=== PATIENT | female | born 1975 | race Caucasian/White ===

== ENCOUNTER 2018-01-21 20:51 | Emergency (ER) | payer OTHER ==
[~2018-01-21] VITALS: Ht 149.9 cm; Wt 75.8 kg
[2018-01-21 21:00] VITALS: BP 136/82
--- NOTE | 2018-01-21 21:20 | NUR ---
C/o generalized weakness, headache x 1 day. Reports NAUSEA AND LOW BACK PAIN TODAY. PMH: anemia, DM PT DENIES V/D, ADMITS NAUSEA X 1 DAY; SKIN IS INTACT, PINK/WARM/DRY; AAOX4, PERRL, WITH EVEN AND STEADY GAIT; LUNGS CLEAR BL, BREATHING UNLABORED; HR EVEN AND REGULAR, BL PERIPHERAL PULSES PRESENT; BS ACTIVE X4, NO TENDERNESS TO PALPATION, NO HEPATOSPLENOMEGALLY PALPATED, RESONANT TO PERCUSSION; PT DENIES ANY FEVER, CP, SOB, OR COUGH AT THIS TIME; PT STATES 10/10 PAIN AT THIS TIME; VSS; PATIENT POSITIONED FOR COMFORT; HOB ELEVATED; BEDRAILS UP X2; BED DOWN.
--- NOTE | 2018-01-21 21:20 | NUR ---
PT AMBULATED TO ED BED 1 BY KEN HINKLE
--- NOTE | 2018-01-21 22:30 | NUR ---
DR. ZAMBRANO MADE AWARE PT REQUESTING MEDICATION FOR HEADACHE AT THIS TIME.
[2018-01-21] MEDS ORDERED: IBUPROFEN 600 MG TAB PO ONE (23:00)
[2018-01-21] MEDS ORDERED: IBUPROFEN 600 MG TAB ONE (23:02)
--- NOTE | 2018-01-21 23:22 | NUR ---
PT ASLEEP ON GURTUCKER, NO IDENTIFIED REQUESTS AT THIS TIME.
[2018-01-21] MEDS ORDERED: NACL 0.9% 1,000 ML IV ONE (23:40)
[2018-01-21] MEDS ORDERED: LORazepam 2 MG/ML VIAL IVP ONE (23:40)
[2018-01-21 23:44] LABS: BASOPHILS % (AUTO) 0.5 % (0.0-2.0); EOSINOPHILS % (AUTO) 0.1 % (0.0-4.0); HEMATOCRIT 36.8 % (36-48); HEMOGLOBIN 11.7 g/dL (12.0-16.0); LYMPHOCYTES # (AUTO) 0.5 K/uL (2.5-16.5); LYMPHOCYTES % (AUTO) 5.9 % (20.5-51.1); MEAN CORPUSCULAR HEMOGLOBIN 23 pg (27-31); MEAN CORPUSCULAR HGB CONC 32 g/dL (33-37); MEAN CORPUSCULAR VOLUME 72.7 fL (80-94); MONOCYTES # (AUTO) 0.7 K/uL (0.8-1.0); MONOCYTES % (AUTO) 7.8 % (1.7-9.3); PLATELET COUNT (AUTO) 173 K/uL (140-450); RED BLOOD CELL COUNT(AUTO) 5.06 MIL/uL (4.20-5.40); WHITE BLOOD COUNT (AUTO) 9.3 K/uL (4.8-10.8)
[2018-01-21 23:58] LABS: NEUTROPHILS % (AUTO) 85.7 % (42.2-75.2)
[2018-01-21 23:59] LABS: ANION GAP 13.5 (8-16); CARBON DIOXIDE 25.6 mmol/L (21-32); POTASSIUM 4.1 mmol/L (3.5-5.1)
--- NOTE | 2018-01-22 | NUR ---
MEDICATIONS ON HOLD UNTIL PT RETURNS TO CT Addendum: 01/22/18 at 0113 by [email or web address] RETURNS FROM CT*
[2018-01-22 00:06] LABS: ALBUMIN 3.8 g/dL (3.4-5.0); TOTAL BILIRUBIN 0.9 mg/dL (0.0-1.0)
[2018-01-22 00:47] LABS: APPEARANCE,URINE SL CLOUDY (CLEAR); BILIRUBIN,URINE NEGATIVE (NEGATIVE); BLOOD, URINE 3+ (NEGATIVE); LEUKOCYTE ESTERASE ,URINE NEGATIVE (NEGATIVE); NITRITE, URINE NEGATIVE (NEGATIVE); PH,URINE 5.5 (5.0-9.0); UGLUCOSE 2+ (NEGATIVE)
[2018-01-22 00:58] LABS: COLOR,URINE SLIGHT BLOODY (YELLOW)
[2018-01-22 00:59] LABS: RBC,URINE >100 /HPF (0-5); WBC,URINE 0-5 (RARE) /HPF (0-5)
--- NOTE | 2018-01-22 00:59 | NUR ---
RETURN FROM CT
--- NOTE | 2018-01-22 01:00 | NUR ---
PT PLACED BACK ON MONITOR, NAD NOTED. NO IDENTIFIED REQUESTS AT THIS TIME.
[2018-01-22 01:32] LABS: BARBITURATE, URINE NEG. ng/ml (NEG <=200); BENZODIAZEPINE, URINE NEG. ng/mL (NEG <=200); CANNABINOID, URINE NEG. ng/mL (NEG <=50); COCAINE, URINE NEG. ng/mL (NEG <=300); OPIATE, URINE NEG. ng/mL (NEG <=2000); PHENCYCLIDINE SCREEN,URINE NEG. ng/mL (NEG <=25)
[2018-01-22] MEDS ORDERED: NACL 0.9% 1,000 ML IV ONE (01:55)
--- NOTE | 2018-01-22 02:00 | NUR ---
PT ASLEEP ON JESSE SEALS NOTED. NO REQUESTS AT THIS TIME.
[2018-01-22 03:11] VITALS: BP 108/66
== END 2018-01-22 03:11 | disposition home or self-care (01) ==
LOC: MED 20:51
DX: M51.86 Other intervertebral disc disorders, lumbar region (principal); I31.3 Pericardial effusion (noninflammatory); R11.0 Nausea; R53.1 Weakness; E11.9 Type 2 diabetes mellitus without complications
CPT/HCPCS: 36415; 70450; 72125; 72128; 72131; 80053; 80305; 81001; 81025; 83690; 85025; 87086; 96361; 96374; 99285; J2060; J7030

== ENCOUNTER 2018-01-25 23:44 | Emergency (ER) | payer OTHER ==
[~2018-01-25] VITALS: Ht 149.9 cm; Wt 81.6 kg
--- NOTE | 2018-01-25 23:57 | NUR ---
Patient ambulated to bed 6 with family. RN evaluating patient at bedside.
--- NOTE | 2018-01-26 | NUR ---
42/F CAME IN WITH FAMILY, C/O 03/04 STABBING L LOWER BACK PAIN, RADIATING TO LOWER ABD, X3 DAYS, WORSENING X1 DAY. PT REPORTS BLE NUMBNESS. BLOOD GLUCOSE 306. PT REPORTS NAUSEA, DENIES VOMITING, DIARRHEA. LBM TODAY. SKIN IS INTACT, PINK/WARM/DRY; AAOX4, PERRL, WITH EVEN AND STEADY GAIT; LUNGS CLEAR BL, BREATHING UNLABORED; HR EVEN AND REGULAR, BL PERIPHERAL PULSES PRESENT; BS ACTIVE X4, SLIGHT TENDERNESS TO LOWER ABD. PT DENIES ANY FEVER, CP, SOB, OR COUGH AT THIS TIME; VSS; PATIENT POSITIONED FOR COMFORT; HOB ELEVATED; BEDRAILS UP X2; BED DOWN. DR NELSON AT BEDSIDE TO EVALUATE.
--- NOTE | 2018-01-26 00:01 | NUR ---
Dr. Smith evaluating patient at bedside.
[2018-01-26] MEDS ORDERED: ONDANSETRON 4 MG/2 ML VIAL IVP ONE (00:05)
[2018-01-26] MEDS ORDERED: MORPHINE SULFATE 4 MG/ML SYR IVP ONE (00:05)
[2018-01-26] MEDS ORDERED: NACL 0.9% 1,000 ML IV ONE (00:05)
[2018-01-26 00:52] LABS: APPEARANCE,URINE TURBID (CLEAR); BILIRUBIN,URINE 1+ (NEGATIVE); BLOOD, URINE 3+ (NEGATIVE); COLOR,URINE BROWN (YELLOW); LEUKOCYTE ESTERASE ,URINE TRACE (NEGATIVE); NITRITE, URINE POSITIVE (NEGATIVE); PH,URINE 6.5 (5.0-9.0); UGLUCOSE 3+ (NEGATIVE)
--- NOTE | 2018-01-26 01:00 | NUR ---
PT RESTING IN BED, PT REPORTS NO PAIN AT THIS TIME. RR EVEN AND UNLABORED. ALL NEEDS MET.
[2018-01-26 01:07] LABS: RBC,URINE TOO NUMEROUS TO COUN /HPF (0-5)
--- NOTE | 2018-01-26 01:49 | NUR ---
PT RESTING IN BED, PT REPORTS NO PAIN AT THIS TIME, VSS, RR EVEN AND UNLABORED. ALL NEEDS MET.
[2018-01-26] MEDS ORDERED: LEVOFLOXACIN 750 MG TAB PO ONE (01:50)
--- NOTE | 2018-01-26 02:25 | NUR ---
Dr. Smith re-evaluating patient at bedside.
[2018-01-26 02:41] VITALS: BP 133/73
--- NOTE | 2018-01-26 02:41 | NUR ---
Patient discharged with v/s stable. Written and verbal after care instructions given and explained. Patient alert, oriented and verbalized understanding of instructions. Ambulatory with steady gait. All questions addressed prior to discharge. ID band removed. Patient advised to follow up with PMD. Rx of LEVAQUIN 750MG given. Patient educated on indication of medication including possible reaction and side effects. Opportunity to ask questions provided and answered.
== END 2018-01-26 02:41 | disposition home or self-care (01) ==
LOC: MED 23:44
DX: N12 Tubulo-interstitial nephritis, not specified as acute or chronic (principal); E11.9 Type 2 diabetes mellitus without complications
CPT/HCPCS: 74176; 81001; 81025; 87086; 87186; 96361; 96374; 96375; 99285; J2270; J2405; J7030

== ENCOUNTER 2022-07-01 18:35 | Emergency (ER) | payer OTHER ==
[~2022-07-01] VITALS: Ht 149.9 cm; Wt 74.4 kg
[2022-07-01 19:35] VITALS: BP 143/77
--- NOTE | 2022-07-01 19:38 | NUR ---
TO LOBBY A/W BED AMBULATORY
[2022-07-01] MEDS ORDERED: ALUMINUM HYD/MAG/SIMETHICONE 30 ML UDC PO ONE (21:15)
--- NOTE | 2022-07-01 21:43 | NUR ---
PT TO BED #1 S/P BLOOD DRAW
[2022-07-01 21:52] LABS: BASOPHILS # (AUTO) 0.1 K/uL (0.00-0.22); BASOPHILS % (AUTO) 0.7 % (0.0-2.0); EOSINOPHILS # (AUTO) 0.2 K/uL (0-0.4); EOSINOPHILS % (AUTO) 2.3 % (0.0-4.0); HEMATOCRIT 28.5 % (36-48); HEMOGLOBIN 9.6 g/dL (12.0-16.0); LYMPHOCYTES # (AUTO) 3.1 K/uL (2.5-16.5); MEAN CORPUSCULAR HEMOGLOBIN 28 pg (27-31); MEAN CORPUSCULAR HGB CONC 34 g/dL (33-37); MEAN CORPUSCULAR VOLUME 84.2 fL (80-94); MONOCYTES # (AUTO) 0.6 K/uL (0.8-1.0); MONOCYTES % (AUTO) 6.5 % (1.7-9.3); NEUTROPHILS # (AUTO) 5.9 K/uL (1.8-7.7); NEUTROPHILS % (AUTO) 59.5 % (42.2-75.2); PLATELET COUNT (AUTO) 279 K/uL (140-450); RED BLOOD CELL COUNT(AUTO) 3.38 MIL/uL (4.20-5.40); RED CELL DISTRIBUTION WIDTH 14.4 % (11.6-13.7); WHITE BLOOD COUNT (AUTO) 9.9 K/uL (4.8-10.8)
[2022-07-01 22:15] LABS: ALBUMIN 3.5 g/dL (3.4-5.0); ANION GAP 12.6 (8-16); ASPARTATE AMINOTRANSFERASE 31 U/L (15-37); CARBON DIOXIDE 28.3 mmol/L (21-32); CHLORIDE 104 mmol/L (98-107); CREATININE 0.8 mg/dL (0.6-1.3); GFR ARICAN-AMERICAN 99 mL/min (>90); GLUCOSE 220 mg/dL (74-106); LIPASE 366 U/L (73-393); POTASSIUM 4.9 mmol/L (3.5-5.1); SODIUM SERUM 140 mmol/L (136-145); TOTAL BILIRUBIN 0.2 mg/dL (0.0-1.0); UREA NITROGEN, BLOOD 17 mg/dL (7-18)
[2022-07-01] MEDS ORDERED: NAPR-1704 PO (22:25)
[2022-07-01] MEDS ORDERED: FAMO-90 PO (22:25)
[2022-07-01 22:47] VITALS: BP 135/59
--- NOTE | 2022-07-01 22:49 | NUR ---
Patient discharged with v/s stable. Written and verbal after care instructions given and explained. Patient verbalized understanding. Ambulatory with steady gait. All questions addressed prior to discharge. Advised to follow up with PMD.
== END 2022-07-01 22:47 | disposition home or self-care (01) ==
LOC: MED 18:35
DX: R07.9 Chest pain, unspecified (principal); R10.13 Epigastric pain; E11.9 Type 2 diabetes mellitus without complications; E78.5 Hyperlipidemia, unspecified; I10 Essential (primary) hypertension; Z79.899 Other long term (current) drug therapy; Z98.890 Other specified postprocedural states
CPT/HCPCS: 36415; 71046; 80053; 81025; 83690; 84484; 85025; 93005; 99285

== ENCOUNTER 2023-01-19 22:02 | Emergency (ER) | payer OTHER ==
[~2023-01-19] VITALS: Ht 149.9 cm; Wt 72.1 kg
[~2023-01-19 22:02] MED LIST: FAMO-90 PO; NAPR-1704 PO
[2023-01-19 22:15] VITALS: BP 133/81; PULSE 81; RESP 16; TEMP 97.8; O2SAT 96
--- NOTE | 2023-01-19 22:18 | NUR ---
TO LOBBY A/W BED AMBULATORY
[2023-01-19] MEDS ORDERED: NAPR-1704 PO (23:02)
[2023-01-19 23:15] VITALS: O2SAT 96
[2023-01-19] MEDS ORDERED: KETOROLAC 30 MG/ML VIAL IM ONE (23:15)
== END 2023-01-19 23:30 | disposition home or self-care (01) ==
LOC: MED 22:02
DX: M67.833 Other specified disorders of tendon, right wrist (principal); E11.9 Type 2 diabetes mellitus without complications; Z79.4 Long term (current) use of insulin; Z79.899 Other long term (current) drug therapy
CPT/HCPCS: 73110; 96372; 99283; J1885